=== PATIENT | female | born 1940 | race Two or more races ===

== ENCOUNTER 2017-04-10 11:36 | Emergency (ER) | payer SELFPAY ==
[~2017-04-10] VITALS: Ht 157.5 cm; Wt 71.0 kg
[~2017-04-10 11:36] MED LIST: ASPI325T32 PO; ASPI81TA3 PO; BRIM5DRO11 OP; CLON0.5T4 PO; CLOP75TA19 PO; CRES10 PO; FERR-55 PO; ISOS60TA36 PO; ISOS60TA52 PO; LAS20 PO; LISI-329 PO; LISI10TA2 PO; NAPR-688 PO; NITR0.4T32 SL; PROP40TA4 PO; PROP40TA54 PO; SIMV40TA3 PO; VALS1TAB64 PO
[2017-04-10 11:40] VITALS: Ht 157.5 cm; Wt 71.0 kg
== END 2017-04-10 15:12 | disposition left against medical advice (07) ==
LOC: E/R 11:36
DX: Z53.21 Procedure and treatment not carried out due to patient leaving prior to being seen by health care provider (principal)